=== PATIENT | female | born 1985 | race Two or more races ===

== ENCOUNTER 2025-03-25 11:07 | Emergency (ER) | payer BC, MEDICAID ==
[~2025-03-25] VITALS: Ht 165.1 cm; Wt 59.4 kg
--- NOTE | 2025-03-25 12:01 | ED.PDOC ---
History of Present Illness(SKN HPI Comments This is a 39 year old female presenting to the ED with chief complaint of dog bite. Patient reports that both of her huskies were fighting and when attempting to break them up this morning, one of them bit her right hand. Patient relays that she now has multiple puncture wounds to her right hand with associated pain and swelling. Patient notes she is not sure when her last Tetanus was. Patient denies any numbness, uncontrolled bleeding, or any further injuries. Patient retains full range of motion sensation to her right upper extremity. Chief Complaint: Animal Bite Time Seen by MD: 11:57 History of Present Illness: Nurses Notes, Medications, Allergies Allergies: Coded Allergies: NO KNOWN ALLERGIES (Unverified , 03/25/25) Information Source: Patient Mode of Arrival: Ambulatory Severity: Moderate Timing: Hours Duration: Since onset Prehospital treatment: None Location: Hand Mechanism: Dog Developed: Other (Swelling, puncture wounds) Occurence: Outdoors Object: None Condition of Object: None Retained Foreign Body: No Wound Type: Other (Puncture wound) Immunization Status of Animal: Current Tetanus: Unknown History of: None Past Medical History PAST MEDICAL HISTORY: Denies Surgical History: Denies all surgeries MOTORCYLES FINAL INSPECTOR History: No Pertinent MOTORCYLES FINAL INSPECTOR History Family History Family History: Reviewed,noncontributory to illness Social History Smoker: Non-Smoker Alcohol: Denies ETOH Use Drugs: Denies Drug Use Lives In: Home Constitutional: denies: chills, diaphoresis, fatigue, fever, malaise, sweats, weakness, others EENTM: denies: blurred vision, double vision, ear bleeding, ear discharge, ear drainage, ear pain, ear ringing, eye pain, eye redness, hearing loss, mouth pain, mouth swelling, nasal discharge, nose bleeding, nose congestion, nose pain, photophobia, tearing, throat pain, throat swelling, voice changes, others Respiratory: denies: cough, hemoptysis, orthopnea, SOB at rest, shortness of breath, SOB with excertion, stridor, wheezing, others Cardiovascular: denies: chest pain, dizzy spells, diaphoresis, Dyspnea on exertion, edema, irregular heart beat, left arm pain, lightheadedness, palpitations, PND, syncope, others Gastrointestinal: denies: abdomen distended, abdominal pain, blood streaked bowels, constipated, diarrhea, dysphagia, difficulty swallowing, hematemesis, melena, nausea, poor appetite, poor fluid intake, rectal bleeding, rectal pain, vomiting, others Genitourinary: denies: abnormal vagina bleeding, burning, dyspareunia, dysuria, flank pain, frequency, hematuria, incontinence, pain, , vagina discharge, urgency, others Neurological: denies: dizziness, fainting, headache, left sided numbness, left sided weakness, numbness, paresthesia, pre-existing deficit, right sided numbness, right sided weakness, seizure, speech problems, tingling, tremors, weakness, others Musculoskeletal: denies: back pain, gout, joint pain, joint swelling, muscle pain, muscle stiffness, neck pain, others Integumetry: reports: wounds (puncture wounds to right hand); denies: bruises, change in color, change in hair/nails, dryness, laceration, lesions, lumps, rash, others Allergic/Immunocompromised: denies: Difficulty Healing, Frequent Infections, Hives, Itching, others Hematologic/Lymphatic: denies: anemia, blood clots, easy bleeding, easy bruising, swollen glands, others Endocrine: denies: excessive hunger, excessive sweating, excessive thirst, excessive urination, flushing, intolerance to cold, intolerance to heat, unexplained weight gain, unexplained weight loss, others Psychiatric: denies: anxiety, bipolar disorder, depression, hopeless, panic disorder, schizophrenia, sleepless, suicidal, others All Other Systems: Reviewed and Negative Physical Exam General Appearance: No Apparent Distress, Normal HEENT: Normal ENT Inspection, Pharynx Normal, TMs Normal Neck: Full Range of Motion, Non-Tender, Normal, Normal Inspection Respiratory: Chest Non-Tender, Lungs Clear, No Accessory Muscle Use, No Respiratory Distress, Normal Breath Sounds Cardiovascular: No Edema, No JVD, No Murmur, No Gallop, Normal Peripheral Pulses, Regular Rate/Rhythm Breast Exam: Deferred Gastrointestinal: Non Tender, No Pulsatile Mass, Normal Bowel Sounds, Soft Genitalia: Deferred Pelvic: Deferred Rectal: Deferred Extremities: No calf tenderness, Normal capillary refill, Normal inspection, Normal range of motion, Non-tender, No pedal edema, Other (Full range of motion to bilateral handful flexion and extension of the D IP, MCP and PIP is in isolation, respectively. Patient may able to abduct and adduct all digits. Able to oppose the thumb. able to make and release a fist. Sensation intact to light touch over all digits.) Musculoskeletal : Apperance: Normal Neurologic: Alert, claims service adjustor II-XII nml as Tested, No Motor Deficits, Normal Affect, Normal Mood, No Sensory Deficits Cerebellar Function: Normal Reflexes: Normal Skin: Dry, Normal Color, Warm, Wounds (Punctate laceration between the 2nd and 3rd digits area digit webspace, 1 on the radial aspect of the right wrist, volar aspect of the right hand proximal to the 4th digit) Lymphatic: No Adenopathy Was a procedure done? Was a procedure done?: No Differential Diagnosis (INTG) Differential Diagnosis: Puncture Wound X-Ray, Labs, Meds, VS Vital Signs Date Time Temp Pulse Resp B/P (MAP) Pulse Ox O2 Delivery O2 Flow Rate FiO2 03/25/25 12:35 89 20 98 Room Air* 0 21 03/25/25 11:30 98.5 98 13 118/85 (96) 99 98.5 Lab Test 03/25/25 12:16 Range/Units Urine Test Negative Negative Current Medications Medications (Trade) Dose Ordered Sig/John Route Start Time Stop Time Status Last Admin Cefazolin Sodium (Ancef Intramuscular) 1 gm ONCE ONCE IM 03/25/25 12:00 03/25/25 12:01 DC 03/25/25 12:51 Diphtheria/ Tetanus/Acell Pertussis (Boostrix T-Dap) 0.5 ml ONCE ONCE IM 03/25/25 12:00 03/25/25 12:01 DC 03/25/25 12:35 Povidone Iodine (Betadine Topical Oint) 1 applic ONCE ONCE TOP 03/25/25 12:00 03/25/25 12:01 DC 03/25/25 12:33 Ondansetron HCl (Zofran Po) 8 mg ONCE ONCE PO 03/25/25 12:45 03/25/25 12:46 DC 03/25/25 12:[address] [address] Ph: [phone] DIAGNOSTIC IMAGING Diagnostic Imaging Report : [id number] Signed PATIENT: SHAN LOPEZARTHURCCT: [id number] UNIT: [id number] : 1985 LOC: ER ROOM / BED: / AGE / SEX: 39 / F ADM STATUS: REG ER SERVICE 1158 ORDERING PHYSICIAN: JOSE LUIS ZAIDI MD PROCEDURE(s): RHAN2 - R HAND 2 VIEW XRAY REASON: assess for FB ORDER NUMBER(s): [id number], ACCESSION NUMBER(s): [id number] XY R HAND 2 VIEW XRAY, INDICATION: assess for FB TECHNICAL DATA: Frontal, and lateral views were obtained of the right hand. COMPARISON: None FINDINGS: No fracture is identified. Joint spaces are maintained. Alignment is anatomic. Soft tissues are within normal limits. IMPRESSION: No acute fracture or dislocation of the right hand. No radiodense foreign body seen. ATED BY: JESÚS REID MD DICTATED DATE/TIME: 03/25/251329 SIGNED BY: JESÚS REID MD SIGNED DATE/TIME: 03/25/251329 CC: X-Ray, Labs, Meds, VS Comment This pleasant 39-year-old female presents after having a dog bite her right hand. They are her dogs. Two of them were fighting she attempted to separate them when she got the dog bites. She had full range of motion to the hand. Sensation was intact. Actually did not show any foreign bodies. The area was copiously irrigated and cleaned with iodine. She was given 1 dose of antibiotics and a Tdap booster in the ED. She will be discharged home with a prescription for Y[place]hey. She is asked to follow up with the PCP in the next 1-2 days for wound check. She should also return sooner for any new/worse/worsening symptoms. She states her understanding. Time of 1ST Reevaluation: 12:57 Reevaluation 1ST: Unchanged Patient Education/Counseling: Diagnosis, Treatment Family Education/Counseling: No Family Present SEPSIS Sepsis Screen Physician Orders R Hand 2 View Xray (03/25/25 11:58) Vital Signs Date Time Temp Pulse Resp B/P (MAP) Pulse Ox O2 Delivery O2 Flow Rate FiO2 03/25/25 12:35 89 20 98 Room Air* 0 21 03/25/25 11:30 98.5 98 13 118/85 (96) 99 98.5 Medications Medications Dose Ordered Sig/John Route Start Time Stop Time Status Last Admin Dose Admin Cefazolin Sodium 1 gm ONCE ONCE IM 03/25/25 12:00 03/25/25 12:01 DC 03/25/25 12:51 Diphtheria/ Tetanus/Acell Pertussis 0.5 ml ONCE ONCE IM 03/25/25 12:00 03/25/25 12:01 DC 03/25/25 12:35 Ondansetron HCl 8 mg ONCE ONCE PO 03/25/25 12:45 03/25/25 12:46 DC 03/25/25 12:39 Povidone Iodine 1 applic ONCE ONCE TOP 03/25/25 12:00 03/25/25 12:01 DC 03/25/25 12:33 Departure 1 Departure Time of Disposition: 14:37 Impression: Primary Impression: Laceration of left hand Additional Impression: Dog bite Disposition: 01 HOME / SELF CARE / HOMELESS Condition: Good Discharged With: Self Critical Care Note Critical Care Time?: No Stability Stability form required: No Heart Score Heart Score: Heart Score Response (Comments) Value History N/A 0 EKG N/A 0 Age N/A 0 Risk Factors N/A 0 Troponin N/A 0 Total 0 I personally scribed for JOSE LUIS ZAIDI MD ([email or web address]) on 03/25/25 at 12:01. Electronically submitted by Shaji Pollard ([email or web address]). I personally scribed for JOSE LUIS ZAIDI MD ([email or web address]) on 03/25/25 at 13:54. Electronically submitted by Shaji Pollard ([email or web address]). JOSE LUIS ZAIDI MD Mar 25, 2025 12:01
[2025-03-25] MEDS: POVIDONE IODINE 10 % TOPICAL OINT 30GM TOP ONE (12:33)
[2025-03-25 12:35] VITALS: PULSE 89; RESP 20; O2SAT 98
[2025-03-25] MEDS: TETANUS-DIPTH-ACEL PERTUSSIS 0.5ML SYR Tdap IM ONE (12:35)
[2025-03-25] MEDS: ONDANSETRON ODT 4 MG TAB PO ONE (12:39)
[2025-03-25] MEDS: ceFAZolin IM 1GM/2.5ML STERILE WATER IM ONE (12:51)
--- NOTE | 2025-03-25 13:32 | DVH ---
XY R HAND 2 VIEW XRAY, INDICATION: assess for FB TECHNICAL DATA: Frontal, and lateral views were obtained of the right hand. COMPARISON: None FINDINGS: No fracture is identified. Joint spaces are maintained. Alignment is anatomic. Soft tissues are withi n normal limits. IMPRESSION: No acute fracture or dislocation of the right hand. No radiodense foreign body seen.
[2025-03-25] MEDS ORDERED: AUG875T PO (14:39)
[2025-03-25] MEDS ORDERED: HYDR-4902 PO (14:39)
[2025-03-25 15:00] VITALS: BP 106/71; PULSE 61; RESP 18; TEMP 98.2; O2SAT 98
== END 2025-03-25 15:06 | disposition home or self-care (01) ==
LOC: ER 11:07
DX: S61.412A Laceration without foreign body of left hand, initial encounter (principal); W54.0XXA Bitten by dog, initial encounter; Y93.89 Activity, other specified; Y92.89 Other specified places as the place of occurrence of the external cause; Y99.8 Other external cause status
CPT/HCPCS: 73120; 81025; 90471; 90715; 96372; 99284; J0690; Q0162